=== PATIENT | male | born 2000 | race Caucasian/White ===

== ENCOUNTER 2024-02-20 20:09 | Emergency (ER) | payer SELFPAY ==
[2024-02-20] MEDS: Lidocaine 1% PF 2 ML SDV INJECT ONE (20:27)
[2024-02-20] MEDS: Sulfamethoxazole/Trimethoprim 800-160 MG Tab PO ONE (20:27)
[2024-02-20] MEDS: Acetaminophen/HYDROcodone 325-5 MG Tab PO ONE (20:41)
== END 2024-02-20 20:57 | disposition home or self-care (01) ==
LOC: MW.ED 20:09
DX: L02.31 Cutaneous abscess of buttock (principal); Z79.899 Other long term (current) drug therapy; Z75.8 Other problems related to medical facilities and other health care
CPT/HCPCS: 10060; 99282; A9270; 99283; J3490